=== PATIENT | female | born 1985 | race Caucasian/White ===

== ENCOUNTER 2017-02-06 04:18 | Inpatient (IN) | payer MEDICARE, OTHER ==
[~2017-02-06] VITALS: Ht 165.1 cm; Wt 99.8 kg
[2017-02-06 05:51] LABS: HEMOGLOBIN 11.3 gm/dl (12.3-15.3); RED BLOOD COUNT 3.74 M/UL (4.00-5.10)
[2017-02-07 02:43] LABS: HEMOGLOBIN 10.2 gm/dl (12.3-15.3)
[2017-02-07] MEDS ORDERED: NORCO 5-325 TA1 EACH PO (13:49)
== END 2017-02-07 14:46 | disposition home or self-care (01) | DRG 775 ==
LOC: GENOP 04:18 → OB 05:18
PROVIDERS: Obstetrics & Gynecology; ADMIT Obstetrics & Gynecology
PROC: 10E0XZZ Delivery of Products of Conception, External Approach (ICD-10-PCS; principal; 2017-02-06)
PROC: 3E0R3CZ (ICD-10-PCS; 2017-02-06)
PROC: 3E0234Z Introduction of Serum, Toxoid and Vaccine into Muscle, Percutaneous Approach (ICD-10-PCS; 2017-02-07)
DX: O77.0 Labor and delivery complicated by meconium in amniotic fluid (principal); O62.3 Precipitate labor; Z3A.39 39 weeks gestation of pregnancy; Z37.0 Single live birth; O99.89 Other specified diseases and conditions complicating pregnancy, childbirth and the puerperium; H91.90 Unspecified hearing loss, unspecified ear; O99.344 Other mental disorders complicating childbirth; F41.1 Generalized anxiety disorder; F32.9 Major depressive disorder, single episode, unspecified; O99.214 Obesity complicating childbirth; E66.9 Obesity, unspecified; R42 Dizziness and giddiness; O99.353 Diseases of the nervous system complicating pregnancy, third trimester; G43.909 Migraine, unspecified, not intractable, without status migrainosus; Z87.440 Personal history of urinary (tract) infections; Z87.442 Personal history of urinary calculi; Z83.3 Family history of diabetes mellitus; Z82.3 Family history of stroke; Z82.49 Family history of ischemic heart disease and other diseases of the circulatory system; Z81.8 Family history of other mental and behavioral disorders; Z81.4 Family history of other substance abuse and dependence; Z80.9 Family history of malignant neoplasm, unspecified
CPT/HCPCS: 36415; 82800; 85014; 85018; 85025; 90707; J2405; J2590; J2795; J3010; J7120

== ENCOUNTER 2020-11-10 23:18 | Outpatient (CLI) | payer MEDICARE ==
[~2020-11-10 23:18] MED LIST: IBUPROFEN800 MG PO; NORCO 5-325 TA1 EACH PO; ONDANSETRON ODT4 MG PO; ONDANSETRON4 MG/2 M2 SL; PROMETHAZINE12.5 M1 PO; SILVADENE CREAM20 GM TOP
[2020-11-11] MEDS ORDERED: PHENERGAN 25 MG25 M1 PO (03:58)
== END 2020-11-11 01:07 | disposition home or self-care (01) ==
LOC: GENOP 23:18
DX: O62.9 Abnormality of forces of labor, unspecified (principal)
CPT/HCPCS: 81001; G0463

== ENCOUNTER 2020-11-11 01:09 | Emergency (ER) | payer MEDICARE ==
[2020-11-11 02:38] LABS: HEMOGLOBIN 11.6 gm/dl (12.3-15.3); RED BLOOD COUNT 3.75 M/UL (4.00-5.10)
[2020-11-11 02:55] LABS: BUN/CREATININE RATIO 12 (0-10)
[2020-11-11] MEDS ORDERED: PHENERGAN 25 MG25 M1 PO (03:58)
== END 2020-11-11 04:07 | disposition home or self-care (01) ==
LOC: ER1 01:09
PROVIDERS: Family Medicine
DX: O21.9 Vomiting of pregnancy, unspecified (principal); O99.891 Other specified diseases and conditions complicating pregnancy; H91.90 Unspecified hearing loss, unspecified ear; Z3A.20 20 weeks gestation of pregnancy
CPT/HCPCS: 80053; 85025; 96374; 99284; J2550; J7030

== ENCOUNTER 2021-03-13 03:18 | Inpatient (IN) | payer MEDICARE ==
[~2021-03-13 03:18] MED LIST changes: +PHENERGAN 25 MG25 M1 PO
[2021-03-14 03:43] LABS: HEMOGLOBIN 11.2 gm/dl (12.3-15.3)
[2021-03-14] MEDS ORDERED: HYDROCODON-ACE1 EAC4 PO (12:00)
[2021-03-14] MEDS ORDERED: IBUPROFEN600 MG PO (12:00)
[2021-03-14] MEDS ORDERED: DOCUSATE SODIU100 MG PO (12:00)
== END 2021-03-14 15:08 | disposition home or self-care (01) | DRG 807 ==
LOC: GENOP 03:18 → OB 03:51
PROVIDERS: ADMIT Obstetrics & Gynecology
PROC: 10E0XZZ Delivery of Products of Conception, External Approach (ICD-10-PCS; principal; 2021-03-13)
PROC: 4A1HXCZ Monitoring of Products of Conception, Cardiac Rate, External Approach (ICD-10-PCS; 2021-03-13)
DX: O99.344 Other mental disorders complicating childbirth (principal); Z37.0 Single live birth; Z3A.37 37 weeks gestation of pregnancy; F41.9 Anxiety disorder, unspecified; Z20.822 Contact with and (suspected) exposure to COVID-19
CPT/HCPCS: 36415; 80307; 82800; 85014; 85018; 90715; J2590; U0002